=== PATIENT | male | born 1940 | race Caucasian/White ===

== ENCOUNTER 2019-08-27 09:42 | Day surgery (SDC) | payer OTHER ==
[~2019-08-27] VITALS: Ht 182.9 cm; Wt 89.9 kg
[~2019-08-27 09:42] MED LIST: ASPI325; ATOR80; Aspirin EC81 MG PO; CENTRUM SILVER1 EAC1; CENTRUM SILVER1 EAC4 PO; Colace100 MG PO; DOCU100; FIBER CAPS PO; GLIP5; GLIP5 PO; Lipitor80 MG PO; METO50ER; METOPROLOL SUCC25 MG PO; Omega 3 1,0001 EACH PO; PSYLLIUM0.4 GM; Prinivil10 MG; Prinivil10 MG PO; SERT50; SERT50 PO; TAMS.4ER; TAMS.4ER PO
== END 2019-08-27 11:57 | disposition home or self-care (01) ==
LOC: ORSCSDS 09:42
PROVIDERS: Internal Medicine Gastroenterology
PROC: 0DJD8ZZ Inspection of Lower Intestinal Tract, Via Natural or Artificial Opening Endoscopic (ICD-10-PCS; principal; 2019-08-27 11:00)
DX: R10.30 Lower abdominal pain, unspecified (principal); Z86.010 Personal history of colon polyps; K57.30 Diverticulosis of large intestine without perforation or abscess without bleeding; K64.8 Other hemorrhoids; I25.2 Old myocardial infarction; I10 Essential (primary) hypertension; R73.03 Prediabetes; F17.210 Nicotine dependence, cigarettes, uncomplicated; Z79.899 Other long term (current) drug therapy; Z79.82 Long term (current) use of aspirin
CPT/HCPCS: 82947; J2704; J7120

== ENCOUNTER → 2019-10-03 | Outpatient (CLI) | payer OTHER ==
[2019-10-06 11:07] LABS: M-SPIKE, % Not Observed % (Not Observed)
== END | disposition home or self-care (01) ==
LOC: LAB SHORT 10:54 → OLS 10:54 → LAB FUT 10-01 13:05
PROVIDERS: Internal Medicine
DX: Z00.01 Encounter for general adult medical examination with abnormal findings (principal)
CPT/HCPCS: 81050; 84156; 84166